=== PATIENT | female | born 1990 | race African-American/Black ===

== ENCOUNTER 2018-10-14 19:51 | Emergency (ER) | payer MEDICAID ==
[~2018-10-14] VITALS: Ht 167.6 cm; Wt 73.0 kg
[2018-10-14] MEDS ORDERED: ACETAMINOPHEN 500MG TABLET PO STA (20:12)
[2018-10-14] MEDS ORDERED: SODIUM CHLORIDE 0.9% 1,000 ML IV ONE (20:12)
[2018-10-14 20:58] LABS: BASOPHILS % 0.8 % (0.0-2.0); HEMATOCRIT. 37.8 % (36.0-48.0); HEMOGLOBIN. 12.9 g/dL (12.0-16.0); LYMPHOCYTES % 42.3 % (20.0-50.0); MEAN CORPUSCULAR HEMOGLOBIN 31.7 pg (28.0-32.0); MEAN CORPUSCULAR VOLUME 93.3 fL (81.0-99.0); MEAN PLATELET VOLUME 8.9 fl (7.4-10.4); MONOCYTES % 5.6 % (2.0-8.0); NEUTROPHILS % 50.3 % (40.0-76.0); PLATELET 268 x1000/uL (130-400); RED BLOOD CELL COUNT 4.06 mill/uL (4.2-5.4); RED CELL DISTRIBUTION WIDTH 12.9 % (11.6-14.6)
[2018-10-14 21:03] LABS: CHLORIDE 107 mEq/L (98-107); PROTHROMBIN TIME 10.2 sec (9.1-11.1)
[2018-10-14] MEDS ORDERED: KETOROLAC 15MG/ML VIAL IV ONE (23:15)
[2018-10-14 23:30] LABS: CLARITY URINE CLEAR (CLEAR); COLOR URINE YELLOW (YELLOW); KETONES URINE 1+ (NEGATIVE); LEUKOCYTE ESTERASE URINE NEGATIVE (NEGATIVE); NITRITE URINE NEGATIVE (NEGATIVE); OCCULT BLOOD URINE 3+ (NEGATIVE); PH URINE 8.5 (4.5-8.0); PROTEIN URINE TRACE (NEGATIVE); SPECIFIC GRAVITY URINE 1.012 (1.005-1.030); UROBILINOGEN URINE 0.2 E.U./dL (0.2-1.0)
[2018-10-15 00:31] VITALS: BP 106/72
== END 2018-10-15 00:34 | disposition home or self-care (01) ==
LOC: ER 19:51
DX: R07.81 Pleurodynia (principal); M25.562 Pain in left knee; R51 Headache; Y04.2XXA Assault by strike against or bumped into by another person, initial encounter; Y93.89 Activity, other specified; Y92.89 Other specified places as the place of occurrence of the external cause
CPT/HCPCS: 36415; 70450; 70486; 71045; 72170; 73560; 80053; 81003; 83690; 85025; 85610; 96374; 99284; J1885; J7030